=== PATIENT | male | born 1950 | race Caucasian/White ===

== ENCOUNTER 2018-02-10 07:23 | Day surgery (SDC) | payer MEDICARE, OTHER ==
[2018-02-10 08:23] LABS: ADD MAN DIFF? NO
[2018-02-10 08:26] LABS: WHITE BLOOD COUNT 8.5 10^3/ul (4.8-10.8)
[2018-02-10 08:26] LABS: BASOPHILS % 0.5 % (0.0-2.0); EOSINOPHILS # 0.3 10^3/ul (0.0-0.5); EOSINOPHILS % 3.9 % (0.0-7.0); HEMATOCRIT 37.1 % (42.0-52.0); HEMOGLOBIN 11.7 g/dl (14.0-18.0); LYMPHOCYTES # 1.6 10^3/ul (0.8-2.9); LYMPHOCYTES % 18.9 % (15.0-51.0); MEAN CORPUSCULAR HEMOGLOBIN 27.5 pg (29.0-33.0); MEAN CORPUSCULAR HGB CONC 31.5 g/dl (32.0-37.0); MEAN CORPUSCULAR VOLUME 87.3 fl (82.0-101.0); MEAN PLATELET VOLUME 10.7 fl (7.4-10.4); MONOCYTE # 0.7 10^3/ul (0.3-0.9); MONOCYTES % 8.7 % (0.0-11.0); NEUTROPHIL # 5.7 10^3/ul (1.6-7.5); NEUTROPHILS % 67.5 % (39.0-77.0); PLATELET COUNT 181 10^3/UL (140-415); RED BLOOD COUNT 4.25 10^6/ul (4.70-6.10); RED CELL DISTRIBUTION WIDTH 16.6 % (11.5-14.5)
[2018-02-10 08:48] LABS: INR 1.09; PROTIME 14.3 Sec (11.9-14.9); PT RATIO 1.1
[2018-02-10 08:56] LABS: CHOL/HDL RATIO 2.8 RATIO; HDL CHOLESTEROL 28 mg/dl (31-75); LDL CHOLESTEROL,CALCULATED 33 mg/dl; TRIGLYCERIDES 90 mg/dl (0-149)
[2018-02-10 08:56] LABS: CHOLESTEROL 79 mg/dl (100-200)
[2018-02-10] MEDS ORDERED: LIDOCAINE 1% (MDV) 20 ML INJ ×2 (09:09→09:56)
[2018-02-10] MEDS ORDERED: IODIXANOL LOCM 100 ML BTL ×2 (09:09→10:08)
[2018-02-10] MEDS ORDERED: FENTAnyl 50 MCG/ML VIAL (09:10)
[2018-02-10] MEDS ORDERED: MIDAZOLAM 1 MG/ML 2 ML INJ (09:10)
[2018-02-10] MEDS ORDERED: ACETAMINOPHEN 325 MG TAB PO (11:00)
[2018-02-10] MEDS ORDERED: AL HYDROX/MG HYDROX/SIMETH 30 ML CUP PO (11:00)
[2018-02-10] MEDS ORDERED: ONDANSETRON 4 MG INJ IV (11:00)
[2018-02-10] MEDS ORDERED: morphine 2 MG INJ IV (11:00)
[2018-02-10] MEDS: SOD CHLORIDE 0.9% 1,000 ML IV (12:18)
== END 2018-02-10 17:15 | disposition home or self-care (01) ==
LOC: SDS 07:23
DX: I25.10 Atherosclerotic heart disease of native coronary artery without angina pectoris (principal); Z95.1 Presence of aortocoronary bypass graft; Z95.2 Presence of prosthetic heart valve
CPT/HCPCS: 71045; 80061; 82962; 85025; 85610; 85730; 93005; 93458; 93561